=== PATIENT | female | born 1930 | race Two or more races ===

== ENCOUNTER 2021-05-13 15:58 | Emergency (ER) | payer OTHER ==
[~2021-05-13] VITALS: Ht 162.6 cm; Wt 55.0 kg
[2021-05-13 16:54] LABS: BASOPHILS % 1.2 % (0.0-2.0); EOSINOPHILS % 1.2 % (0.0-5.0); HEMATOCRIT. 33.6 % (36.0-48.0); HEMOGLOBIN. 10.8 g/dL (12.0-16.0); LYMPHOCYTES % 13.6 % (20.0-50.0); MEAN CORPUSCULAR VOLUME 83.8 fL (81.0-99.0); MEAN PLATELET VOLUME 9.5 fl (7.4-10.4); MONOCYTES % 7.1 % (2.0-8.0); NEUTROPHILS % 76.9 % (40.0-76.0); PLATELET 230 x1000/uL (130-400); RED BLOOD CELL COUNT 4.01 mill/uL (4.2-5.4); RED CELL DISTRIBUTION WIDTH 14.5 % (11.6-14.6)
[2021-05-13 16:55] LABS: CHLORIDE 109 mEq/L (98-107)
[2021-05-13 16:57] LABS: INR 1.1; PROTHROMBIN TIME 11.5 sec (9.6-11.0)
[2021-05-13 16:59] LABS: ETHANOL BLOOD < 10 mg/dL
[2021-05-13 17:04] LABS: CREATINE KINASE 31 IU/L (26-192)
[2021-05-13 19:26] LABS: CLARITY URINE CLEAR (CLEAR); COLOR URINE YELLOW (YELLOW); KETONES URINE 1+ (NEGATIVE); LEUKOCYTE ESTERASE URINE 1+ (NEGATIVE); NITRITE URINE POSITIVE (NEGATIVE); OCCULT BLOOD URINE NEGATIVE (NEGATIVE); PH URINE 5.5 (4.5-8.0); PROTEIN URINE 1+ (NEGATIVE); UROBILINOGEN URINE 0.2 E.U./dL (0.2-1.0)
[2021-05-13] MEDS ORDERED: INSULIN REGULAR (HUMULIN R) 300UNITS/3ML VIAL SUBCUT ONE (19:45)
[2021-05-13 19:50] LABS: *BARBITURATES SCREEN URINE NEGATIVE (NEGATIVE)
[2021-05-13 19:51] LABS: *AMPHETAMINES SCREEN URINE NEGATIVE (NEGATIVE); *BENZODIAZEPINES SCREEN URINE NEGATIVE (NEGATIVE); *COCAINE SCREEN URINE NEGATIVE (NEGATIVE); CANNABINOID URINE SCREEN NEGATIVE (NEGATIVE); METHADONE URINE SCREEN NEGATIVE (NEGATIVE); OPIATES URINE SCREEN NEGATIVE (NEGATIVE); PHENCYCLIDINE URINE SCREEN NEGATIVE (NEGATIVE)
[2021-05-13 21:17] VITALS: BP 136/44
== END 2021-05-13 21:41 | disposition short-term general hospital (02) ==
LOC: ER 15:58
DX: R73.9 Hyperglycemia, unspecified (principal); R41.82 Altered mental status, unspecified; I95.9 Hypotension, unspecified; R53.1 Weakness; D64.9 Anemia, unspecified; E83.51 Hypocalcemia; I44.7 Left bundle-branch block, unspecified; R47.01 Aphasia; R90.82 White matter disease, unspecified; H54.7 Unspecified visual loss; I25.2 Old myocardial infarction
CPT/HCPCS: 36415; 70450; 71045; 80053; 80305; 80320; 81003; 82550; 82962; 83605; 83690; 83880; 84145; 84484; 85025; 85610; 87040; 87077; 87086; 87186; 93005; 96372; 99285; J1815; G0480